=== PATIENT | female | born 1995 | race Two or more races ===

== ENCOUNTER 2017-10-29 13:24 | Emergency (ER) | payer OTHER ==
[~2017-10-29] VITALS: Ht 160 cm; Wt 117.9 kg
[2017-10-29 13:48] VITALS: BP 113/79
[2017-10-29] MEDS ORDERED: Acetaminophen 500mg (ES) tab ORAL ONE (14:15)
[2017-10-29 14:27] LABS: APPEARANCE,URINE CLEAR; BILIRUBIN, URINE NEGATIVE (NEGATIVE); GLUCOSE, URINE (UA) NEGATIVE (NEGATIVE); KETONES,URINE NEGATIVE (NEGATIVE); LEUKOCYTE ESTERASE ,URINE 1+ (NEGATIVE); NITRITE,URINE NEGATIVE (NEGATIVE); PH,URINE 7 (4.5-8.0); PROTEIN,URINE 1+ (NEGATIVE); UROBILINOGEN,URINE NORMAL MG/DL (0.0-1.0)
[2017-10-29 14:31] LABS: COLOR,URINE YELLOW
--- NOTE | 2017-10-29 14:44 | Emergency Room Report ---
History of Present Illness General Chief Complaint: Abdominal Pain Source: Patient Present Illness HPI 22year-old female patient presents ER with multiple complaints. Patient complaining of left-sided lower rib pain and one episode of vomiting yesterday. Reports the pain began just before episode of vomiting. Reports no recent travel or contact similar symptoms. Denies blood in vomit. Also reports hx of diarrhea, reports no bowel or bladder incontinence. Denies vertigo, vision changes, phonophobia. Denies vomiting since that time, has been able tolerate oral by mouth foods and fluids. Reports pain in left side is worse with movement. Reports pain is reproducible. Denies fever, chest pain, shortness of breath, abdominal pain. denies recent medication use. denies dysuria, hematuria. Reports hx of cough few days ago that has resolved. Denies hx of cardiovascular disease, asthma. Denies hx of diabetes. Reports up to date on vaccinations. Allergies: Coded Allergies: No Known Allergies (Unverified , 10/29/17) Patient History Past Medical History: see triage record Last Menstrual Period: 1 1/2 year ago; IUD implant Reviewed Nursing Documentation: PMH: Agreed; PSxH: Agreed Nursing Documentation-PMH Past Medical History: No Stated History Review of Systems All Other Systems: negative except mentioned in HPI Physical Exam Vital Signs Date Time Temp Pulse Resp B/P (MAP) Pulse Ox O2 Delivery O2 Flow Rate FiO2 10/29/17 13:41 98.7 85 16 113/79 98 Room Air 98.8 Sp02 EP Interpretation: reviewed, normal General Appearance: well appearing, no apparent distress, alert, GCS 15, non- toxic Head: normocephalic, atraumatic Eyes: bilateral eye normal inspection, bilateral eye PERRL ENT: hearing grossly normal, normal pharynx, no angioedema, normal voice, uvula midline, moist mucus membranes Neck: full range of motion Respiratory: lungs clear, normal breath sounds, no rhonchi, no respiratory distress, no accessory muscle use, no wheezing, speaking full sentences Cardiovascular #1: regular rate, rhythm, no edema Gastrointestinal: non tender, soft, no mass, non-distended, no guarding, no rebound, other - negative Rovsing, negative Smith, no tenderness to palpation at McBurney's point Musculoskeletal: back normal, digits/nails normal, gait/station normal, normal range of motion, tender - left lower rib tenderness to palpation, no bony deformity, no flail chest, no bruising Neurologic: alert, oriented x3, responsive, powerhouse oiler III-XII nml as tested, motor strength/tone normal, sensory intact, cerebellar normal, normal gait, speech normal Psychiatric: mood/affect normal Skin: no rash Medical Decision Making PA Attestation Dr. Villanueva is my supervising Physician whom patient management has been discussed with. Diagnostic Impression: Primary Impression: Vomiting Additional Impression: Rib pain on left side ER Course Pt. presents to the ED c/o vomiting and rib pain. Ddx considered but are not limited to gastritis, viral syndrome, food poisoning , costochondritis. no abdominal tenderness to palpation, negative Rovsing sign, negative Smith sign, does not require imaging or lab at this time. Vital signs: are WNL, pt. is afebrile ED INTERVENTIONS: ordered UA, chest x-ray, medication. UA unremarkable, no signs of infection. Followup with PCP for further treatment and referral as needed. Chest x-ray negative for acute disease for the official reading. Lungs clear to auscultation, no flail chest, no bony deformity. Due to pain being worse with movement, likely musculoskeletal in nature, tenderness to palpation of left lower rib, no tenderness to palpation of the abdomen. May be related to recent episodes of vomiting and coughing, take ibuprofen for pain. patient has no cardiac risk factors, do not believe the patient requires cardiac workup at this time. Denies vertigo, denies visual changes, cranial nerves intact as tested, do not believe patient requires head CT at this time to rule out underlying pathology. patient able to ambulate independently without difficulty. Cap refill less than 2 seconds, normal skin turgor, moist mucous membranes, low suspicion for dehydration. Patient reports that she took Tylenol and did not help alleviate symptoms. Will provide patient with Motrin as an alternative. Informed patient that pain may be due to inflammation, continue take medication to help treat MSK/inflammation which may be causing pain symptoms. Patient has been able to eat food and tolerate by mouth fluids since initial episode of vomiting. Denies cough at this time. Does not require further intervention in the ER at this time. does not require further labs or imaging at this time. Patient reports feeling better following administration of medication. Patient does not require abx at this time; afebrile, no recent travel, no blood in stool. Return to ER if symptoms persist. Likely viral syndrome. Drink fluids as tolerated to prevent dehydration. No focal neuro deficits, patient able ambulate independently, nontoxic appearing , OR discharge to home. Advised on BRAT diet. DISCHARGE Rx provided for Motrin At this time pt is stable for d/c to home. Patient is resting comfortably, in no acute distress, nontoxic appearing, talking without difficulty. Patient to take medications as instructed Will provide with patient care instructions and any necessary prescriptions. Care plan and follow-up instructions provided. Patient instructed to follow-up with primary care provider in 3 - 5 days. Patient questions asked and answered. Patient reports understanding and agreement to treatment plan.ER precautions given. Patient instructed to return to ER immediately for any new or worsening of symptoms including but not limited to increasing SOB, persistent fever, intractable vomiting. - Please note that this Emergency Department Report was dictated using [employer] support counselor technology software, occasionally this can lead to erroneous entry secondary to interpretation by the dictation equipment. Labs Test 10/29/17 14:02 Urine Color Yellow Urine Appearance Clear Urine pH 7 (4.5-8.0) Urine Specific [place] 1.010 (1.005-1.035) Urine Protein 1+ (NEGATIVE) Urine Glucose (UA) Negative (NEGATIVE) Urine Ketones Negative (NEGATIVE) Urine Occult Blood 4+ (NEGATIVE) Urine Nitrite Negative (NEGATIVE) Urine Bilirubin Negative (NEGATIVE) Urine Urobilinogen Normal MG/DL (0.0-1.0) Urine Leukocyte Esterase 1+ (NEGATIVE) Urine RBC 5-10 /HPF (0 - 2) Urine WBC 0-2 /HPF (0 - 2) Urine Squamous Epithelial Cells Few /LPF (NONE/OCC) Urine Bacteria Few /HPF (NONE) Urine Mucus Few /LPF (NONE/OCC) Urine HCG, Qualitative Negative (NEGATIVE) Last Vital Signs Date Time Temp Pulse Resp B/P (MAP) Pulse Ox O2 Delivery O2 Flow Rate FiO2 10/29/17 14:23 98.8 10/29/17 13:48 84 16 113/79 98 Room Air Disposition: HOME, SELF-CARE Condition: Stable Scripts Ibuprofen* (MOTRIN*) 800 Mg Tablet 800 MG ORAL Q8H, #30 TAB 0 Refills Prov: Dylon Lucia 10/29/17 Referrals: [facility],REFERR[facility] (PCP) Patient Instructions: Nausea and Vomiting, Adult, [id number], Rib Contusion Additional Instructions: Followup with primary care provider in 3 -5 days. Avoid spicy foods, avoid dairy foods. BRAT diet: bananas, rice, apple sauce, toast. Likely musculoskeletal pain, continue to take NSAIDs for pain relief. Advised on rest, ice and heat. Drink plenty of fluids. Take medications as directed. Patient questions asked and answered. ER precautions given, patient instructed to return to ER immediately for any new or worsening of symptoms. Dylon Lucia Oct 29, 2017 14:44
--- NOTE | 2017-10-29 15:01 | Diagnostic Imaging Report ---
History: ABD PAIN Exam: XR CXR 1 VIEW Comparison: None available FINDINGS: The lungs are clear. The cardiac and mediastinal contours are within limits. The visualized osseous structures appear within limits. IMPRESSION: No evidence of acute disease.
[2017-10-29 15:20] VITALS: BP 109/80
[2017-10-29] MEDS ORDERED: IBUPROFEN800 MG ORAL (15:24)
[2017-10-29 15:35] VITALS: BP 109/80
== END 2017-10-29 15:35 | disposition home or self-care (01) ==
LOC: EMR 14:10
DX: R07.81 Pleurodynia (principal); R11.10 Vomiting, unspecified
CPT/HCPCS: 71045; 81003; 81025; 99283